=== PATIENT | male | born 1990 | race Two or more races ===

== ENCOUNTER 2017-02-06 01:12 | Emergency (ER) | payer MEDICAID ==
[~2017-02-06] VITALS: Ht 177.8 cm; Wt 97.5 kg
[2017-02-06 01:20] VITALS: BP 131/86
[2017-02-06] MEDS ORDERED: ZOFRAN4 MG ORAL (01:32)
--- NOTE | 2017-02-06 01:32 | Emergency Room Report ---
History of Present Illness General Chief Complaint: Nausea Source: Patient Present Illness HPI Is a 26 year male with no past history. He presents with chief complaint of feeling nauseous. This has been ongoing for over a month. He said it started about 2 months ago when he was drinking heavily. He went to [facility] diagnosed with pancreatitis. He was seen 2 weeks later at [place] and blood work was unremarkable. Since then he said that when he eat get nauseous but no vomiting. No fever or chills. No diarrhea. He kept down fact had significant weight loss. He followup with his doctor any referral to see a specialist but won't be until April. He came here because he wants answers. Allergies: Coded Allergies: No Known Allergies (Unverified , 02/06/17) Patient History Past Medical History: none, see triage record, old chart reviewed Past Surgical History: none Pertinent Family History: none Social History: Denies: smoking Immunizations: other Reviewed Nursing Documentation: PMH: Agreed, PSxH: Agreed Nursing Documentation-PM Past Medical History: No Stated History Review of Systems Eye: Denies: blurred vision, eye pain ENT: Denies: ear pain, nose congestion, throat swelling Respiratory: Denies: cough, shortness of breath Cardiovascular: Denies: chest pain, palpitations Gastrointestinal: Reports: nausea, Denies: abdominal pain, diarrhea, vomiting Musculoskeletal: Denies: back pain, joint pain Skin: Denies: rash Neurological: Denies: headache, numbness Endocrine: Denies: increased thirst, increased urine Hematologic/Lymphatic: Denies: easy bruising All Other Systems: negative except mentioned in HPI Physical Exam Vital Signs Date Time Temp Pulse Resp B/P Pulse Ox O2 Delivery O2 Flow Rate FiO2 02/06/17 01:15 98.1 84 14 131/86 96 Room Air vitals normal Sp02 EP Interpretation: reviewed, normal General Appearance: well appearing, no apparent distress, alert Head: normocephalic, atraumatic Eyes: bilateral eye EOMI, bilateral eye PERRL ENT: hearing grossly normal, normal pharynx Neck: full range of motion, supple, no meningismus Respiratory: chest non-tender, lungs clear, normal breath sounds Cardiovascular #1: regular rate, rhythm, no murmur Gastrointestinal: normal bowel sounds, non tender, no mass, no organomegaly, no bruit, non-distended Musculoskeletal: back normal, gait/station normal, normal range of motion Psychiatric: mood/affect normal Skin: warm/dry Medical Decision Making Diagnostic Impression: Primary Impression: Nausea alone ER Course Patient with nausea but no vomiting. He looks well. PMI almost 31. We'll discharge home. Told to followup with a specialist for endoscopy. No need for any workup right now. Last Vital Signs Date Time Temp Pulse Resp B/P Pulse Ox O2 Delivery O2 Flow Rate FiO2 02/06/17 01:15 98.1 84 14 131/86 96 Room Air Status: unchanged Disposition: HOME, SELF-CARE Condition: Stable Scripts Ondansetron (Zofran) 4 Mg Tablet 4 MG ORAL Q6H Y for Nausea & Vomiting, #30 TAB 0 Refills Prov: JOCELYN DELACRUZ M.D. 02/06/17 Patient Instructions: Nausea, Adult Additional Instructions: Followup with your DrLuis Felipe in 7 days as needed. Keep appointment with the specialist. Return if worse. JOCELYN DELACRUZ M.D. Feb 06, 2017 01:32
[2017-02-06 01:35] VITALS: BP 131/86
== END 2017-02-06 01:35 | disposition home or self-care (01) ==
LOC: EMR 01:30
DX: R11.0 Nausea (principal)
CPT/HCPCS: 99283